=== PATIENT | male | born 1940 | race Caucasian/White ===

== ENCOUNTER 2016-12-01 07:54 | Day surgery (SDC) | payer MEDICARE ==
[2016-12-01] VITALS (18 sets, daily range): BP systolic 96–163; BP diastolic 54–87
[~2016-12-01] VITALS: Ht 182.9 cm; Wt 92.0 kg
[~2016-12-01 07:54] MED LIST: HEPARIN 5000 UNIT/0.5 ML SYRINGE ONE; LACTATED RINGERS 1,000 ML IV SCH; LIDOCAINE/EPINEPHRINE 1% 1:100,000 (XYLOCAINE) 30 ML VIAL INJ ONE; NS FLUSH 3 ML PRN IV; SODIUM CHLORIDE VIAL (PF) 20 ML IV ONE; ceFAZolin 1000 MG (ANCEF) VIAL ONE; ceFAZolin 2,000 MG in SODIUM CHLORIDE VIAL (PF) 20 ML IV SCH
[2016-12-01] MEDS ORDERED: MIDAZOLAM 2 MG/2 ML (VERSED) VIAL ONE (09:44)
[2016-12-01] MEDS ORDERED: PROPOFOL 20 ML IV ONE (09:44)
[2016-12-01] MEDS ORDERED: ALFENTANIL 500 MCG/ML (ALFENTA) 5 ML AMP IV ONE ×2 (09:44)
[2016-12-01] MEDS ORDERED: LIDOCAINE 2% BOLUS 100 MG/5 ML (XYLOCAINE) SYRINGE ONE (10:47)
[2016-12-01] MEDS ORDERED: LIDOCAINE 4% TOPICAL 4.5 ML SYR ONE (10:48)
[2016-12-01] MEDS ORDERED: ONDANSETRON 2 MG/ML (Z0FRAN) 2 ML VIAL IV PRN (13:33)
[2016-12-01] MEDS ORDERED: METOCLOPRAMIDE 10 MG/2 ML (REGLAN) VIAL IV PRN (13:33)
--- NOTE | 2016-12-01 13:44 | NUR ---
tramadol 100mg p.o for c/o pain in abd incision site pain. warm blankets to site spouse at side
[2016-12-01] MEDS: morphine INJ 4 MG/ML 1 ML SYRINGE IV PRN ×2 (14:32→15:45)
[2016-12-01] MEDS: NS FLUSH 10 ML PRN IV ×2 (14:33→15:45)
--- NOTE | 2016-12-01 14:33 | NUR ---
Morphine 4mg iv for c/o abd pain flushed with NS 10mg
--- NOTE | 2016-12-01 15:30 | NUR ---
Patient arrives to room 305 via wheelchair accompanied by Abbey Patel RN and . Patient alert and oriented X3. Reports pain to the right of PEG tube rated 10/10 on pain scale after ambulating. Vital signs WNL. HR RRR. Lung sounds CTAB. Port-a-cath site clean and dry with Tegaderm intact. Updated on plan of care for shift including pain management and informing nurse or new or increased symptoms. Call light in reach.
--- NOTE | 2016-12-01 15:43 | NUR ---
at 1500 went to check on patient to see how pain medication was working. Pt states that the pain was still at a 7 on a 0-10 scale. Just left of the tube placement there was a hardened area appox. 4cm long and 2cm wide patient denied pain to the area upon palpation. Dr Maynard notified and orders received to admit to floor for observation. Report called and accepted by Dahlia CRUZ. Pt transported by w/c to room.
--- NOTE | 2016-12-01 15:50 | NUR ---
Morphine 2mg IV provided for c/o abdominal pain rated 10/10 on pain scale. Vital signs at this time = T- 96.7, P- 74 bpm, R- 18, BP- 136/78, 02- 97% on roomair. Will continue to monitor.
--- NOTE | 2016-12-01 18:24 | NUR ---
Patient sleeps in long intervals since arriving to floor. Reports abdominal pain rated 5/10 on pain scale but denies need for pain medication at this time. Dressing dry, clean, and intact to right upper chest port-a-cath site. Ambulates to bathroom and voids 200 ml clear yellow urine with standby assist. Reports ambulating did not increase pain at this time. call light in reach.
--- NOTE | 2016-12-01 19:30 | NUR ---
Pt. is up and walks about the room easily; denies discomfort at this time; no nausea. PEG tube intact; dressing applied over PowerPort on upper right chest. Slightly protruding area to the left of PEG tube insertion site noted; will continue to monitor. Pt. is pleasant and cooperative; call light and H2O within reach.
[2016-12-01] MEDS ORDERED: WATER, FOR IRRIGATION 1000 ML POUR BOTTLE ONE (21:31)
[2016-12-01] MEDS ORDERED: WATER (STERILE) FOR INJECTION 10 ML VIAL IV PRN (21:35)
--- NOTE | 2016-12-01 21:40 | NUR ---
PEG tube slowly flushed with 50 cc's sterile water; pt. tolerated procedure well; no nausea or bloating noted. Skin around PEG tube insertion site looks well.
--- NOTE | 2016-12-01 21:46 | NUR ---
Ultram 100 mg PO given for incisional site pain; rated "3". Pt. denies nausea; is alert & orientated; pleasant and cooperative. Call light and H2O within reach.
[2016-12-02 00:11] VITALS: BP 135/79
--- NOTE | 2016-12-02 02:25 | NUR ---
Pt. resting quietly; resp are even and unlabored on room air; appears to be in no distress.
--- NOTE | 2016-12-02 04:29 | NUR ---
Pt. continues to rest quietly; resp are even and unlabored on room air; appears to be in no distress.
[2016-12-02 04:43] VITALS: BP 133/70
[2016-12-02 07:26] VITALS: BP 135/83
--- NOTE | 2016-12-02 11:11 | NUR ---
Discharge instructions reviewed thoroughly with patient and spouse. Flushed PEG tube with 50mL of sterile water, pt assisted with this, educated pt on process. Clamp placed on PEG tube. Questions answered. Informed pt he can call us or Dr Maynard with questions. Skin warm, dry, intact. Resprs nonlabored, even on RA. SL removed with catheter tip intact. Pt dismissed at this time via ambulation accompanied by STAS Clark and spouse. Appreciative of cares. Belongings, DC packet, supplies for PEG tube sent with patient.
== END 2016-12-02 11:11 | disposition home or self-care (01) ==
LOC: ASC 07:54 → MED/SURG 15:19 → ASC 12-02 11:11
PROVIDERS: ATTEND Surgery
DX: C10.9 Malignant neoplasm of oropharynx, unspecified (principal); I71.9 Aortic aneurysm of unspecified site, without rupture; I48.91 Unspecified atrial fibrillation; I10 Essential (primary) hypertension; Z79.01 Long term (current) use of anticoagulants; Z79.82 Long term (current) use of aspirin
CPT/HCPCS: 36415; 36561; 43246; 77001; 85610; 93005; A9270; C1788; J0690; J1644; J2250; J2270; J7050